=== PATIENT | female | born 1980 | race Caucasian/White ===

== ENCOUNTER 2016-10-25 09:02 | Emergency (ER) | payer MEDICAID ==
[~2016-10-25] VITALS: Wt 65.9 kg
[~2016-10-25 09:02] MED LIST: PNV1TABL43 PO
[2016-10-25] MEDS ORDERED: DEXAMETHASONE 10 MG/ML 1 ML INJ ONE (10:38)
[2016-10-25] MEDS ORDERED: ALBUTEROL 0.5% (NEB) 2.5 MG/0.5 ML AMP ONE (10:39)
--- NOTE | 2016-10-25 13:24 | RADRPT ---
PROCEDURE: XR Chest. CLINICAL INDICATION: Cough and fever. TECHNIQUE: Single frontal view. COMPARISON: None. FINDINGS: The lungs are clear. The heart size is normal. There is no pleural effusion. There is no pneumothorax. IMPRESSION: 1. Normal chest radiograph. RPTAT: QQ .Luis Enrique Sloan MD, Date Time Electronically viewed and signed by .Luis Enrique Sloan MD, on 10/25/2016 13:23 .R/
[2016-10-25] MEDS ORDERED: LORA10TA3 PO (13:26)
[2016-10-25] MEDS ORDERED: GUAI-637 PO (13:26)
[2016-10-25] MEDS ORDERED: PRED20TA PO (13:28)
--- NOTE | 2016-10-25 13:28 | ERD ---
ER Documentation Chief Complaint Date/Time DATE: 10/25/16 TIME: 13:27 Chief Complaint cough, fever HPI This is a 28-year-old female presenting to emergency department for cough and fever 2 weeks. Patient states she had temperature max of 10 3F at home. Cough is productive with green sputum and states that she noticed streaks of blood today. Patient also reports headache and nasal congestion. Has not been taking medications at home for this. Patient states she at times feels short of breath. Patient has history of asthma and has been using her inhalers at home. No wheezing. No sick contacts. ROS All systems reviewed and are negative except as per history of present illness. Medications Home Meds Active Scripts Prednisone* (Prednisone*) 20 Mg Tab, 40 MG PO DAILY for 4 Days, TAB Prov:NAHUN QUEZADA NP 10/25/16 Loratadine* (Loratadine*) 10 Mg Tablet, 10 MG PO DAILY, #10 TAB Prov:NAHUN QUEZADA NP 10/25/16 Guaifenesin* (Robitussin*) 100 Mg/5 Ml Syrup, 200 MG PO Q4H Y for COUGH, #240 ML Prov:NAHUN QUEZADA NP 10/25/16 Reported Medications Vit/Fe Fumarate/Fa* ( Vitamin Tablet*) 1 Tab Tablet, 1 TAB PO DAILY 07/15/13 Allergies Allergies: Coded Allergies: Latex, Natural Rubber (Verified Allergy, Intermediate, RASH, 10/01/13) PMhx/Soc History of Surgery: No Anesthesia Reaction: No Hx Neurological Disorder: No Hx Respiratory Disorders: No Hx Cardiac Disorders: No Hx Psychiatric Problems: No Hx Miscellaneous Medical Probl: No Hx Alcohol Use: No Hx Substance Use: No Hx Tobacco Use: No Physical Exam Vitals Vital Signs Date Time Temp Pulse Resp B/P Pulse Ox O2 Delivery O2 Flow Rate FiO2 10/25/16 10:45 77 18 96 21 10/25/16 09:55 97.9 104 20 134/87 97 Physical Exam Const: Alert, no acute distress Head: Atraumatic Eyes: Normal Conjunctiva ENT: Normal External Ears, Nose and Mouth. No erythema or exudate posterior pharynx. No peritonsillar abscess. Non-kissing tonsils. TMs normal bilaterally. Neck: Full range of motion..~ No meningismus. No lymphadenopathy. Resp: Clear to auscultation bilaterally. No wheezing, rhonchi or crackles. No stridor or labored breathing. Patient is talking in complete sentences. Cardio: Regular rate and rhythm, no murmurs Abd: Soft, non tender, non distended. Normal bowel sounds Skin: No petechiae or rashes Back: No midline or flank tenderness Ext: No cyanosis, or edema Neur: Awake and alert Psych: Normal Mood and Affect Results 24 hrs Current Medications Medications (Trade) Dose Ordered Sig/Nilay Route PRN Reason Start Time Stop Time Status Last Admin Dose Admin Dexamethasone (Decadron) 10 mg STK-MED ONCE .ROUTE 10/25/16 10:38 10/25/16 10:39 DC Albuterol (Proventil 0.5% (Neb)) 2.5 mg STK-MED ONCE .ROUTE 10/25/16 10:39 10/25/16 10:40 DC Procedures/[place] [id number] Radiology Main Line: [phone] DIAGNOSTIC IMAGING REPORT Patient: NAY PANTOJA : 1980 Age: 36 Sex: F MR #: [id number] DOS: 10/25/16 0000 Ordering MD: JAKE CASTRO MD Location: [facility] Room/Bed: PROCEDURE: XR Chest. CLINICAL INDICATION: Cough and fever. TECHNIQUE: Single frontal view. COMPARISON: None. FINDINGS: The lungs are clear. The heart size is normal. There is no pleural effusion. There is no pneumothorax. IMPRESSION: 1. Normal chest radiograph. MDM: This is a 36-year-old female presenting to emergency department with cough and fever 2 weeks. She is afebrile upon arrival to ED. Vital signs are stable. ENT and lung exam are unremarkable. No signs or symptoms of respiratory distress. Oxygen saturation 97% on room air. Patient given albuterol nebulizer treatment per respiratory therapy. Patient given Decadron 10 mg IM. Upon reassessment, patient states she is feeling much better. Patient remained stable throughout ED visit. Chest x-ray reviewed by radiologist as normal. Low suspicion for pneumonia, pleural effusion, pneumothorax or acute NM. Differential diagnosis includes but not limited to URI, influenza, otitis media , otitis externa, asthma exacerbation, croup, bronchitis, bronchiolitis and costochondritis. Patient is appropriate for outpatient management and will be given prescription for Robitussin, prednisone and loratadine. Instructed patient to follow-up with primary care provider in the next 2-3 days for reassessment and additional management. Return to ED for any high fever, chest pain, difficulty breathing, shortness breath, wheezing, vomiting, diarrhea, abdominal pain or any new or worsening symptoms. Patient verbalizes understanding. All questions answered at discharge. Departure Diagnosis: Primary Impression: URI (upper respiratory infection) URI type: unspecified viral URI Qualified Code: J06.9 - Viral upper respiratory tract infection Condition: Stable Patient Instructions: Uri, Viral, No Abx (Adult) [facility] Usted se daniels hecho un examen mdico de control que le indica que no est en [place] condicin que requiera tratamiento urgente en el Departamento de Emergencia. Un estudio ms profundo y el tratamiento de trevino condicin pueden esperar sin ningn riesgo hasta que usted sea atendida/o en el consultorio de trevino mdico o [place] cl rosemarie. Es responsabilidad suya arreglar [place] puja para el seguimiento del fernanda. MANEJO DE CONDICIONES NO URGENTES EN EL FUTURO 1) Si usted tiene un mdico de atencin primaria: Usted debera llamar a trevino mdico de atencin primaria antes de venir al departamento de emergencia. Despus de las horas de consultorio, trevino doctor o trevino asociado/a est disponible por telfono. El mdico o enfermero de katherine en el servicio telefnico puede asesorarle por joe medio para atender el problema, o fernanda contrario se puede programar [place] puja. 2) Si usted no tiene un mdico de atencin primaria: Llame al mdico o clnica de referencia que aparece abajo juaquin las horas de consultorio para hacer [place] puja para que le vean. CLINICAS: [facility] [phone] [address] [facility] [phone] [facility] [phone] [place] [id number] [phone] [facility] [phone] [address] [facility]. [phone] [address] . [facility] () Usted se daniels hecho un examen mdico de control que le indica que no est en [place] condicin que requiera tratamiento urgente en el Departamento de Emergencia. Un estudio ms profundo y el tratamiento de trevino condicin pueden esperar sin ningn riesgo hasta que usted sea atendida/o en el consultorio de trevino mdico o [place] cl rosemarie. Es responsabilidad suya arreglar [place] puja para el seguimiento del fernanda. MANEJO DE CONDICIONES NO URGENTES EN EL FUTURO 1) Si usted tiene un mdico de atencin primaria: Usted debera llamar a trevino mdico de atencin primaria antes de venir al departamento de emergencia. Despus de las horas de consultorio, trevino doctor o trevino asociado/a est disponible por telfono. El mdico o enfermero de katherine en el servicio telefnico puede asesorarle por joe medio para atender el problema, o fernanda contrario se puede programar [place] puja. 2) Si usted no tiene un mdico de atencin primaria: Llame al mdico o condado institucions de referencia que aparece abajo juaquin las horas de consultorio para hacer [place] puja para que le vean. SI USTED NO PUEDE PAGAR PARA MAGGY UN MEDICO puede ir a: [facility] [address] [place] [address] [facility] [address] [place] [address] [facility] [address] [place] [address] [facility] [address] [place], [place] [id number] Additional Instructions: Llame al doctor MAANA y laura [place] PUJA PARA DENTRO DE 2-3 GOLD.Dgale a la secretaria que nosotros le instruimos hacer esta puja.Avise o llame si trevino condicin se empeora antes de la puja. Regresa aqui si peor o no mejor. Regresar a ED por fiebre chad, dolor en el pecho, dificultad para respirar, respiracin entrecortada, sibilancias, vmitos, diarrea, dolor abdominal o cualquier sntoma nuevo o que empeora. NAHUN QUEZADA NP Oct 25, 2016 13:22
== END 2016-10-25 13:58 | disposition home or self-care (01) ==
LOC: FTE 09:02
DX: J06.9 Acute upper respiratory infection, unspecified (principal)
CPT/HCPCS: 71010; 94664; J1100; Z7502; Z7610